=== PATIENT | male | born 1990 | race Caucasian/White ===

== ENCOUNTER 2021-01-05 17:47 | Inpatient (IN) | payer SELFPAY ==
[2021-01-05] VITALS: BP 125/64
[~2021-01-05] VITALS: Ht 162.6 cm; Wt 103.5 kg
[~2021-01-05 17:47] MED LIST: NOVOLIN 70/30 SC; NOVOLIN N1000 UNITS SC; NOVOLOG SC; PENICILLN VK500 M1 OR
--- NOTE | 2021-01-05 18:00 | NUR ---
PT TO ROOM WITH STABLE GAIT
[2021-01-05 19:13] LABS: HEMATOCRIT 38.2 % (39.0-50.0); IMMATURE GRANULOCYTES 0.4 % (0.0-5.0); MEAN CELL VOLUME 92.3 fL CALC (80.0-100.0); MEAN CORPUSCULAR HGB 31.4 pG CALC (26.0-32.0); NEUT# 12.15 thou/uL (1.82-7.42); RED BLOOD COUNT 4.14 mill/uL (4.70-6.10); RED CELL DISTRI WIDTH 11.8 % (11.5-15.5)
--- NOTE | 2021-01-05 19:18 | NUR ---
REPORT PROVIDED TO CARIN RIVERA
[2021-01-05 19:25] LABS: ALBUMIN 4.1 g/dL (3.2-5.0); ALKALINE PHOSPHATASE 44 u/l (38-126); CHLORIDE 93 mmol/l (95-108); GFR > 60 ML/MIN (>=60 (CALC)); GFR FOR AFR.AMER. > 60 ML/MIN (>=60 (CALC)); SGOT/AST 33 u/l (17-59); TOTAL PROTEIN 6.5 g/dL (6.3-8.2)
[2021-01-05 19:28] LABS: ANION GAP 22 (6-22 (CALC)); BILIRUBIN, TOTAL 0.6 mg/dL (0.0-1.4); BUN 58 mg/dL (9-20); BUN/CREATININE RATIO 58 (12-20 (CALC)); CARBON DIOXIDE 15 mmol/l (22-30); POTASSIUM 4.9 mmol/l (3.5-5.1); SODIUM 125 mmol/l (137-146)
--- NOTE | 2021-01-05 20:00 | NUR ---
RESTING QUIETLY. NAD
--- NOTE | 2021-01-05 21:00 | NUR ---
NO CHANGE IN EXAM.
[2021-01-05 21:27] LABS: URINE BILIRUBIN - DIPSTICK NEGATIVE (NEGATIVE); URINE BLOOD DIPSTICK TRACE-LYSED (NEGATIVE); URINE CLARITY CLEAR; URINE COLOR YELLOW; URINE GLUCOSE - DIPSTICK 500 mg/dL (NEGATIVE); URINE KETONE 40 mg/dL (NEGATIVE); URINE LEUK ESTERASE NEGATIVE (Negative); URINE NITRITE - DIPSTICK NEGATIVE (Negative); URINE PROTEIN - DIPSTICK NEGATIVE (NEG-TRACE); URINE SPECIFIC GRAVITY <=1.005; URINE UROBILINOGEN - DIPSTICK 0.2 E.U./dL (0.2)
[2021-01-05 21:45] LABS: HEMOGLOBIN 10.7 g/dl (14.0-18.0); IMMATURE GRANULOCYTES 0.6 % (0.0-5.0); MEAN CORPUSCULAR HGB 31.8 pG CALC (26.0-32.0); MEAN CORPUSCULAR HGB CONC 34.5 g/dL CAL (32.0-36.0); NEUT# 14.9 thou/uL (1.82-7.42); RED BLOOD COUNT 3.37 mill/uL (4.70-6.10); RED CELL DISTRI WIDTH 11.8 % (11.5-15.5)
[2021-01-05 21:57] LABS: ALBUMIN 2.9 g/dL (3.2-5.0); ALKALINE PHOSPHATASE 31 u/l (38-126); ANION GAP 14 (6-22 (CALC)); BILIRUBIN, TOTAL 0.4 mg/dL (0.0-1.4); BUN 47 mg/dL (9-20); BUN/CREATININE RATIO 62 (12-20 (CALC)); CARBON DIOXIDE 14 mmol/l (22-30); CHLORIDE 107 mmol/l (95-108); CREATININE 0.8 mg/dL (0.7-1.3); GFR > 60 ML/MIN (>=60 (CALC)); GFR FOR AFR.AMER. > 60 ML/MIN (>=60 (CALC)); POTASSIUM 4.4 mmol/l (3.5-5.1); SGOT/AST 30 u/l (17-59); SODIUM 131 mmol/l (137-146); TOTAL PROTEIN 5.2 g/dL (6.3-8.2)
--- NOTE | 2021-01-05 22:00 | NUR ---
VSS. SAHA. AWAITING DISPO.
[2021-01-05] MEDS ORDERED: NOVOLIN 70/30 SC (22:23)
--- NOTE | 2021-01-05 23:00 | NUR ---
AWAITING TEST RESULTS.
--- NOTE | 2021-01-05 23:25 | NUR ---
Admission Note Report Given to: CARIN SAMANIEGO Transported by: X Wheelchair Stretcher Transported with: X Nurse Transporter X Patent IV O2 X Inspector Balance Wheel Motion Location: X ICU MS2
--- NOTE | 2021-01-05 23:28 | NUR ---
30 yr old white male admitted icu5 per stretcher from er. amb self to bed. bed weight obtained. #20 rac. ivf began as ordered. monitoring manager shows sinus rhythm hr 88. history obtained per pt & er record. oriented to room. fall precautions initiated.
[2021-01-05 23:53] VITALS: BP 132/69
[2021-01-06] VITALS (14 sets, daily range): BP systolic 112–137; BP diastolic 59–72
--- NOTE | 2021-01-06 02:00 | NUR ---
eyes closed. no distress. panel monitor shows sinus rhythm hr 84.
--- NOTE | 2021-01-06 03:00 | NUR ---
awake. accucheck 70. snack given.
--- NOTE | 2021-01-06 05:00 | NUR ---
accucheck 120.
[2021-01-06 05:52] LABS: HEMATOCRIT 29.8 % (39.0-50.0); HEMOGLOBIN 10.4 g/dl (14.0-18.0); IMMATURE GRANULOCYTES 0.4 % (0.0-5.0); MEAN CELL VOLUME 90.9 fL CALC (80.0-100.0); MEAN CORPUSCULAR HGB 31.7 pG CALC (26.0-32.0); MEAN CORPUSCULAR HGB CONC 34.9 g/dL CAL (32.0-36.0); NEUT# 15.66 thou/uL (1.82-7.42); RED BLOOD COUNT 3.28 mill/uL (4.70-6.10); RED CELL DISTRI WIDTH 11.8 % (11.5-15.5)
[2021-01-06 06:24] LABS: ANION GAP 11 (6-22 (CALC)); BUN 30 mg/dL (9-20); BUN/CREATININE RATIO 47 (12-20 (CALC)); CHLORIDE 108 mmol/l (95-108); CREATININE 0.6 mg/dL (0.7-1.3); GFR > 60 ML/MIN (>=60 (CALC)); GFR FOR AFR.AMER. > 60 ML/MIN (>=60 (CALC)); MAGNESIUM 1.9 mg/dL (1.6-2.3); POTASSIUM 4.1 mmol/l (3.5-5.1); SODIUM 133 mmol/l (137-146)
[2021-01-06 06:36] LABS: CARBON DIOXIDE 18 mmol/l (22-30)
--- NOTE | 2021-01-06 07:00 | NUR ---
PT OBSERVED IN ROOM LEFT SIDE LYING, NO S/S OF VISIBLE DISTRESS. SR ON MONITOR, HR 84.
[2021-01-06 10:32] LABS: ANION GAP 11 (6-22 (CALC)); BUN 22 mg/dL (9-20); BUN/CREATININE RATIO 38 (12-20 (CALC)); CARBON DIOXIDE 18 mmol/l (22-30); CHLORIDE 109 mmol/l (95-108); CREATININE 0.6 mg/dL (0.7-1.3); GFR > 60 ML/MIN (>=60 (CALC)); GFR FOR AFR.AMER. > 60 ML/MIN (>=60 (CALC)); POTASSIUM 3.9 mmol/l (3.5-5.1); SODIUM 134 mmol/l (137-146)
--- NOTE | 2021-01-06 14:38 | NUR ---
DC INSTRUCTIONS PROVIDED TO PATIENT AND REVIEWED. PATIENT ACKNOWLEDGES UNDERSTANDING OF INSTRUCTIONS, INCLUDING INSULIN DOSE CHANGES, MANAGING SICK DAYS, WELL RESOURCES TO ASSIST WITH FINDING A PRIMARY CARE PROVIDER. 20G RAC IV DC'D, CATHETER INTACT AND NO S/S OF PHLEBITIS OBSERVED.
--- NOTE | 2021-01-06 14:56 | NUR ---
PT ESCORTED BUILDING BY PCT VIA W/C TO PRIVATE VEHICLE AT THIS TIME. ALL PERSONAL PROPERTY INCLUDING DISCHARGE PAPERS ARE CONFIRMED IN PATIENTS POSSESSION.
== END 2021-01-06 14:45 | disposition home or self-care (01) | DRG 639 ==
LOC: ED 17:47 → ED-I 22:18 → ED 23:18 → ICU 23:19
PROVIDERS: Emergency Medicine; ADMIT Internal Medicine; ATTEND Internal Medicine
DX: E10.10 Type 1 diabetes mellitus with ketoacidosis without coma (principal); D72.829 Elevated white blood cell count, unspecified; R06.6 Hiccough; Z79.4 Long term (current) use of insulin; Z20.822 Contact with and (suspected) exposure to COVID-19